=== PATIENT | female | born 1950 | race Caucasian/White ===

== ENCOUNTER → 2016-03-29 | Outpatient (CLI) | payer MEDICARE, OTHER | LOC: GMAJ 10:54 | PROVIDERS: ATTEND Family Medicine | DX: E03.9 Hypothyroidism, unspecified (principal) ==

== ENCOUNTER → 2016-08-05 | Outpatient (CLI) | payer MEDICARE, OTHER | END | disposition home or self-care (01) | LOC: GMAJ 11:38 | PROVIDERS: ATTEND Family Medicine | DX: E03.9 Hypothyroidism, unspecified (principal) ==

== ENCOUNTER → 2016-08-15 | Outpatient (CLI) | payer MEDICARE, OTHER | LOC: MAMMO 09:02 | PROVIDERS: ATTEND Family Medicine | DX: Z12.31 Encounter for screening mammogram for malignant neoplasm of breast (principal) ==

== ENCOUNTER → 2017-03-14 | Outpatient (CLI) | payer MEDICARE, OTHER | END | disposition home or self-care (01) | LOC: GMAJ 11:52 | PROVIDERS: ATTEND Family Medicine | DX: E03.9 Hypothyroidism, unspecified (principal) ==

== ENCOUNTER → 2017-04-03 | Outpatient (CLI) | payer MEDICARE, OTHER | LOC: LAB.O 08:54 | PROVIDERS: ATTEND Internal Medicine Gastroenterology | DX: R74.0 Nonspecific elevation of levels of transaminase and lactic acid dehydrogenase [LDH] (principal); R94.5 Abnormal results of liver function studies; E11.9 Type 2 diabetes mellitus without complications; E03.9 Hypothyroidism, unspecified; R97.8 Other abnormal tumor markers; I11.0 Hypertensive heart disease with heart failure; E78.00 Pure hypercholesterolemia, unspecified; R10.84 Generalized abdominal pain ==

== ENCOUNTER → 2017-07-11 | Outpatient (CLI) | payer MEDICARE, OTHER | LOC: GMAJ 10:56 | PROVIDERS: ATTEND Family Medicine | DX: E03.9 Hypothyroidism, unspecified (principal) ==

== ENCOUNTER → 2017-11-05 | Outpatient (CLI) | payer MEDICARE, OTHER | LOC: GMAJ 10:28 | PROVIDERS: ATTEND Family Medicine | DX: E03.9 Hypothyroidism, unspecified (principal) ==

== ENCOUNTER → 2017-11-12 | Outpatient (CLI) | payer MEDICARE, OTHER | LOC: LAB.O 10:12 | PROVIDERS: ATTEND Internal Medicine Gastroenterology | DX: R74.0 Nonspecific elevation of levels of transaminase and lactic acid dehydrogenase [LDH] (principal); R10.9 Unspecified abdominal pain ==

== ENCOUNTER 2017-12-24 05:28 | Day surgery (SDC) | payer MEDICARE, OTHER ==
[2017-12-24] MEDS ORDERED: PROPOFOL 200 MG/20 ML VIAL IV ONE (07:00)
[2017-12-24] MEDS ORDERED: LACTATED RINGERS 1,000 ML ONE (07:13)
--- NOTE | 2017-12-24 09:06 | OP ---
DATE OF PROCEDURE: 12/24/17 PREPROCEDURE DIAGNOSIS: 1. History of tubulovillous adenoma in 2015. POSTPROCEDURE DIAGNOSIS: 1. Internal hemorrhoids. 2. Poor preparation. PROCEDURE: 1. Colonoscopy. SURGEON: Jordin Pires MD. SEDATION: Monitored anesthesia care. ESTIMATED BLOOD LOSS: 0 mL. PROCEDURE: Informed consent was obtained prior to sedation. The preprocedure cardiopulmonary assessment was satisfactory. The patient was brought to the Endoscopy Suite and placed in the left lateral decubitus position. The patient was then sedated by the anesthesia team. Digital rectal and perianal exams were normal. The tip of the Olympus colonoscope was inserted into the rectum and advanced under direct visualization to the cecum as identified by the presence of the appendiceal orifice and ileocecal valve. Overall, preparation of the colon was poor. There was semisolid stool in the ascending, transverse and left colon. This was unable to be completely lavaged. However, upon reaching the cecum, the endoscope was slowly withdrawn. There were no mass lesions, but visualization of the colonic mucosa was impaired. Retroflexed view of the anal verge showed small, non-bleeding internal hemorrhoids. The endoscope was then withdrawn from the patient and the procedure terminated. RECOMMENDATION: 1. Discharge the patient home with escort. 2. Resume regular diet. 3. Continue present medications. 4. Repeat endoscopy within one year for poor preparation. #[id number] [facility]
[2017-12-24 09:32] VITALS: BP 157/81; TEMP 97.3; O2SAT 99
== END 2017-12-24 10:35 | disposition home or self-care (01) ==
LOC: AMB 05:28
PROVIDERS: ATTEND Internal Medicine Gastroenterology
DX: Z09 Encounter for follow-up examination after completed treatment for conditions other than malignant neoplasm (principal); K64.8 Other hemorrhoids; E66.9 Obesity, unspecified; E11.9 Type 2 diabetes mellitus without complications; E78.2 Mixed hyperlipidemia; E03.9 Hypothyroidism, unspecified; Z86.010 Personal history of colon polyps; Z68.30 Body mass index [BMI] 30.0-30.9, adult; Z79.52 Long term (current) use of systemic steroids; Z79.84 Long term (current) use of oral hypoglycemic drugs; Z79.899 Other long term (current) drug therapy
CPT/HCPCS: 00811; 36416; 45378; 82948; J3490; J7120

== ENCOUNTER → 2018-01-07 | Outpatient (CLI) | payer MEDICARE, OTHER ==
--- NOTE | 2018-01-09 11:21 | MAM ---
EXAM DESCRIPTION: 3D Screening BILATERAL : Digital Mammography. CLINICAL HISTORY: 67 years Female SCREENING . No complaints. No personal or family history of breast cancer. Late Childbirth. Postmenopausal 14 years. No HRT. Lifetime risk of developing breast cancer (Tyrer-Cuzick model)(%): 6.6. COMPARISON: 2-D digital screening bilateral study 01/05/2016.. TECHNIQUE: Bilateral CC and MLO projection full-field images, digital tomosynthesis mammographic technique. Bilateral digital 2-D full-field MLO images. CAD not available for tomosynthesis or 2-D images. FINDINGS: The breast parenchymal density pattern is: Scattered areas of fibroglandular density. No skin thickening or nipple retraction. Left axillary lymph nodes. Bilateral solitary microcalcifications. Bilateral vascular calcifications. No new focal, stellate mass or density, focal asymmetry , and no suspicious microcalcifications bilaterally. Stable mammograms compared to prior study. Taking into account, differences in mammographic technique. IMPRESSION: Benign exam. BIRAD CATEGORY: 2 BENIGN FINDINGS. RECOMMENDATIONS: FOLLOW UP: Routine digital bilateral mammographic screening, one year interval from January 2018. Written communication explaining the IMPRESSION and follow-up, will be mailed to the patient and referring health care provider. According to the [employer], yearly mammograms are recommended starting at age 40 and continuing as long as a woman is in good health. Any breast change noted on a breast self-exam should be reported promptly to the patient's healthcare provider. Breast MRI is recommended for women with an approximately 20-25% or greater lifetime risk of breast cancer, including women with a strong family history of breast or ovarian cancer and women who have been treated for Hodgkin's disease. A negative mammographic report should not delay tissue diagnosis in patients with significant clinical history or physical findings. Extremely dense breast tissue limits the sensitivity of digital mammography. Electronically signed by: Clay Pack MD 01/09/2018 11:19 AM [employer]
== END ==
LOC: MAMMO 13:00
PROVIDERS: ATTEND Family Medicine
DX: Z12.31 Encounter for screening mammogram for malignant neoplasm of breast (principal)

== ENCOUNTER → 2018-04-14 | Outpatient (CLI) | payer MEDICARE, OTHER | LOC: GMAJ 10:51 | PROVIDERS: ATTEND Family Medicine | DX: E03.9 Hypothyroidism, unspecified (principal) ==

== ENCOUNTER → 2018-11-04 | Outpatient (CLI) | payer MEDICARE, OTHER | LOC: GMAJ 10:34 | PROVIDERS: ATTEND Family Medicine | DX: E03.9 Hypothyroidism, unspecified (principal); I10 Essential (primary) hypertension; E11.9 Type 2 diabetes mellitus without complications ==

== ENCOUNTER → 2019-05-17 | Outpatient (CLI) | payer MEDICARE, OTHER | DX: E03.9 Hypothyroidism, unspecified (principal); E11.9 Type 2 diabetes mellitus without complications; I10 Essential (primary) hypertension ==

== ENCOUNTER → 2020-03-27 | Outpatient (CLI) | payer MEDICARE, OTHER | LOC: GMAJ 10:43 | PROVIDERS: ATTEND Family Medicine | DX: E03.9 Hypothyroidism, unspecified (principal); I10 Essential (primary) hypertension; E11.9 Type 2 diabetes mellitus without complications ==